=== PATIENT | female | born 1965 | race Caucasian/White ===

== ENCOUNTER 2018-12-01 10:35 | Emergency (ER) | payer OTHER ==
[~2018-12-01] VITALS: Ht 162.6 cm; Wt 67.1 kg
[2018-12-01 11:04] VITALS: Ht 162.6 cm; Wt 67.1 kg
[2018-12-01 13:07] VITALS: BP 136/85
== END 2018-12-01 13:07 | disposition home or self-care (01) ==
LOC: ED 10:35
DX: J02.9 Acute pharyngitis, unspecified (principal); H10.32 Unspecified acute conjunctivitis, left eye; Z98.890 Other specified postprocedural states; Z98.51 Tubal ligation status